=== PATIENT | male | born 1990 | race Caucasian/White ===

== ENCOUNTER 2016-11-17 20:25 | Emergency (ER) | payer OTHER ==
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
--- NOTE | 2016-11-17 21:48 | CT ---
EXAMINATION TYPE: CT brain wo con DATE OF EXAM: 11/17/2016 9:37 PM COMPARISON: NONE HISTORY: Posterior head injury 2 days ago. Facial numbness and foggy feeling. CT DLP: 1129.00 mGycm Automated exposure control for dose reduction was used. FINDINGS: Ventricles have normal size. There is no mass effect nor midline shift. There is no sign of intracran ial hemorrhage. The calvarium is intact. IMPRESSION: Negative unenhanced head CT scan.
[2016-11-17 22:24] VITALS: BP 117/58; PULSE 58; RESP 16; TEMP 98.2
== END 2016-11-17 22:20 | disposition home or self-care (01) ==
LOC: EC 20:25
DX: S00.03XA Contusion of scalp, initial encounter (principal); S06.0X9A Concussion with loss of consciousness of unspecified duration, initial encounter; Z88.0 Allergy status to penicillin; Z88.8 Allergy status to other drugs, medicaments and biological substances; W21.220A Struck by ice hockey puck, initial encounter
CPT/HCPCS: 70450; 99283